=== PATIENT | female | born 1970 | race Caucasian/White ===

== ENCOUNTER 2019-10-09 07:59 | Day surgery (SDC) | payer OTHER ==
[2019-10-04 10:29] LABS: BHCG - Serum Negative (NEGATIVE); Pregs Control Background? CLEAR/WHITE (CLR/WHITE); Pregs Control Bar Appear? YES (CONTROL BAR)
[2019-10-04 10:52] LABS: Hemoglobin 11.4 g/dL (12.0-16.0); Mean Corpuscular HGB CONC 32.2 g/dL (32.0-36.0); Mean Corpuscular Hemoglobin 27.7 pg (27.0-31.0); Mean Corpuscular Volume 85.9 fL (78.0-98.0); Mean Platelet Volume 8.6 fL (7.4-10.4); Platelet Count 297 thou/uL (130-400); RBC Distribution Width 12.2 % (11.5-14.5); Red Blood Cell (RBC) Count 4.13 mill/uL (4.20-5.40); White Blood Cell (WBC) Count 6.2 thou/uL (4.8-10.8)
[2019-10-04 19:53] LABS: SARS-CoV-2 MS2 Positive; SARS-CoV-2 N Gene Negative; SARS-CoV-2 S Gene Negative; SARS-CoV-2 by NAA Not Detected (NotDetected); SARS-CoV-2 orf1ab Negative
[2019-10-09] MEDS ORDERED: Lidocaine 1% w/Epinephrine 1:100K 20 ML VIAL ONE (08:26)
[2019-10-09] MEDS ORDERED: Bupivacaine PF 0.5% 30 ML VIAL ONE (08:26)
[2019-10-09] MEDS ORDERED: Gabapentin 300 MG CAP ONE (08:27)
[2019-10-09] MEDS ORDERED: Famotidine/PF 20 mg/2ml Vial ONE (08:28)
[2019-10-09] MEDS ORDERED: CeleCOXIB 100 MG CAP ONE (08:28)
[2019-10-09] MEDS ORDERED: Fentanyl 100 MCG/2 ML VIAL ONE ×3 (09:49→13:54)
[2019-10-09] MEDS ORDERED: Midazolam HCl 2 mg/2 ml Vial ONE ×2 (09:49→10:27)
[2019-10-09] MEDS ORDERED: Ondansetron PF 4 MG/2 ML Vial ONE (09:50)
[2019-10-09] MEDS ORDERED: PROPOFOL 200 MG/20 ML VIAL ONE (09:50)
[2019-10-09] MEDS ORDERED: Glycopyrrolate 0.2 MG/ML 5 ML SYRINGE ONE (09:50)
[2019-10-09] MEDS ORDERED: Dexamethasone 20 MG/5 ML VIAL ONE (09:50)
[2019-10-09] MEDS ORDERED: EPHEDRINE 25 MG/5 ML SYRINGE ONE (09:50)
[2019-10-09] MEDS ORDERED: Lidocaine 1% PF 5 ML VIAL ONE (09:50)
[2019-10-09] MEDS ORDERED: Rocuronium Bromide 10 MG/ML (10ML VIAL) ONE (09:50)
[2019-10-09] MEDS ORDERED: Meperidine HCl/PF 25 MG/ML VIAL SLOW IVP PRN (13:02)
[2019-10-09] MEDS ORDERED: Sodium Chloride 0.9% 1,000 ML IV SCH (13:02)
[2019-10-09] MEDS ORDERED: Simethicone Chewable 80 MG TAB PO PRN (13:02)
[2019-10-09] MEDS ORDERED: Ondansetron PF 4 MG/2 ML Vial IVP PRN (13:02)
[2019-10-09] MEDS ORDERED: HYDROcodone/Acetaminophen 5/325 mg Tablet PO PRN ×2 (13:02)
[2019-10-09] MEDS ORDERED: diphenhydrAMINE 25 MG CAP PO PRN (13:02)
[2019-10-09] MEDS ORDERED: Bisacodyl 10 MG SUPP PR PRN (13:02)
[2019-10-09] MEDS ORDERED: Morphine 4 MG/ML VIAL SLOW IVP PRN (13:02)
--- NOTE | 2019-10-09 13:14 | OP ---
DATE OF PROCEDURE: 10/09/2019 PREOPERATIVE DIAGNOSIS: Umbilical hernia. POSTOPERATIVE DIAGNOSIS: Umbilical hernia. PROCEDURE PERFORMED: Umbilical hernia repair without mesh. ANESTHESIA: General. ESTIMATED BLOOD LOSS: Minimal. COMPLICATIONS: None. SPECIMENS: None. FINDINGS: Umbilical hernia. DESCRIPTION OF PROCEDURE: At the end of the [place] laparoscopic gynecologic procedure, the ports were all removed, 0 Vicryl was used to close the fascial defect at the upper midline trocar site. An incision was made above the umbilicus. Cautery was used to dissect down and amputate the umbilical stalk, exposing the umbilical defect. The edges of the defect were freshened and dissected back to the umbilical defect. The umbilical defect was closed without mesh given the clean contaminated procedure that had been performed. It was closed using interrupted PDS sutures. The umbilical stalk was tacked back down using 3-0 Vicryl. Skin was closed using running 4-0 Monocryl and Dermabond. The patient was sent to Recovery in stable condition. All instrument counts, needle counts, and lap counts were correct. Job ID: [id number]
[2019-10-09] MEDS ORDERED: Ropivacaine HCl/PF 750 ML in Premix Bag 1 BAG NERVE BLCK SCH (13:30)
[2019-10-09] MEDS ORDERED: HYDROcodone/Acetaminophen 5/325 mg Tablet ONE (15:16)
[2019-10-09] MEDS ORDERED: Ketorolac Tromethamine 30 MG/ML VIAL IVP SCH (18:00)
--- NOTE | 2019-10-09 20:06 | OP ---
DATE OF PROCEDURE: 10/09/2019 PREOPERATIVE DIAGNOSES: 1. Menorrhagia. 2. Dysmenorrhea. 3. Umbilical hernia. POSTOPERATIVE DIAGNOSES: 1. Menorrhagia. 2. Dysmenorrhea. 3. Umbilical hernia. PROCEDURES PERFORMED: 1. Robotic-assist total laparoscopic hysterectomy with bilateral salpingectomy. 2. ON-Q pump placement. 3. Intraoperative planned consult, Dr. Salguero for repair of umbilical hernia. 4. Removal of suspected ovarian fibroma. VIDEO GAMES STORYWRITER: Odette Ortiz PA-C. COMPLICATIONS: None. ESTIMATED BLOOD LOSS: Less than 50 mL. OPERATIVE FINDINGS: 1. Normal-appearing vagina and cervix. 2. Uterus sounds to 10 cm. 3. Enlarged uterus, consistent with adenomyosis. 4. Normal-appearing fallopian tubes. 5. Normal-appearing left ovary. 6. 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 7. Hemostatic vaginal cuff. PROCEDURE IN DETAIL: The patient was taken back to the OR with IV fluids running. Once she was in the OR, she was placed in dorsal supine position and general anesthesia was obtained. Once the patient was asleep, she was placed in low dorsal lithotomy position with her arms tucked at her side and the abdomen and vagina were prepped and draped in normal fashion for laparoscopic hysterectomy. Surgeons were gowned and gloved. A Ponce catheter was placed through the urethra to the bladder to drain the bladder. A Darell syringe was attached for bladder manipulation if needed during the case to the Ponce catheter tip. An operative speculum was placed into the vagina. The anterior lip of the cervix was grasped and the uterus was sounded to 10 cm. A ZipList manipulator was assembled with a 10-cm tip and a 4-cm cup and placed into the uterus and vagina in routine fashion for uterine manipulation during the case. The operative speculum and tenaculum were removed. The surgeon's gloves were changed and attention was turned to the laparoscopic portion of the case. Beginning approximately 3 cm above the supraumbilical fold, local anesthesia was injected underneath the skin. A 12-mm skin incision was made with a scalpel. A Veress needle was placed through this incision and the abdomen was insufflated without difficulty. The Veress needle was then removed. A 12-mm trocar was placed through the incision into the distended abdomen without difficulty. The laparoscope was then placed through this port with the above findings noted. The patient was then placed in Trendelenburg position. The right and left lower quadrant 8-mm robotic ports and the right upper quadrant 11-mm economic research assistant port were all placed in a similar fashion and under direct visualization without any difficulty. The laparoscopic instruments were then placed under direct visualization into the pelvis and the robot was docked to the patient's bedside. The surgeon then moved to the robotic console. Beginning at the patient's left side, the left fallopian tube was grasped and elevated away from the pelvic sidewall. The left ureter was identified and noted to be coursing away from the planned pedicle sites. The left fallopian tube was cauterized, transected and removed from the operative field. The left utero-ovarian ligament was then cauterized and transected, freeing the left ovary away to the left pelvic sidewall. The round ligament on the patient's left side was cauterized, transected and divided into anterior and posterior leaf. The anterior leaf was taken down towards the cervix and the uterine artery was skeletonized. The bladder was then backfilled, and with the bladder noted to be well away from the planned colpotomy site, the vesicocervical fascia was dissected away, allowing the bladder to fall away from the planned colpotomy site. Once the bladder was dissected away from the planned colpotomy site, the uterine artery was cauterized and transected. Attention was then turned to the contralateral side. The right ovary was noted to have a pedunculated solid growth, consistent with a fibroma. It was excised and placed into the pelvis to later be removed with the uterine specimen. The remainder of the right ovary was normal appearing. The fallopian tube on the right side was identified. The right ureter was noted to be coursing away from the planned dissection. The right fallopian tube was then cauterized, transected and removed from the abdomen to be sent for pathologic review. The utero-ovarian ligament on the patient's right side was cauterized and transected, allowing the right ovary to fall away to the pelvic sidewall. The right round ligament was cauterized, transected and dissected down into anterior and posterior leaf. The uterine artery on the patient's right side was skeletonized. The bladder flap dissection was completed. The bladder was backfilled again and noted to be well away from the planned colpotomy site. The uterine artery on the patient's right side was cauterized and transected. The colpotomy began circumferentially from the posterior position using monopolar scissors. After it was completed, the uterine specimen was retracted into the vagina. The vaginal cuff and surgical pedicles were copiously irrigated. Any small areas of bleeding at the vaginal cuff were controlled with bipolar cautery. The vagina was then reapproximated with Stratafix suture from corner to corner and closed in 2 layers. Once the vagina was closed, it was again irrigated, suctioned dry, and no areas of bleeding were noted. The pelvic sidewalls and ovaries were irrigated and dry. No areas of bleeding were noted. The pressure within the pelvis was dropped to 4 mmHg with the vaginal cuff inspected and no areas of bleeding noted. After the hysterectomy portion of procedure was completed, an ON-Q catheter tip was placed through the abdominal wall under direct visualization and the catheter was placed into the pelvis. It was primed and noted to be working well. A sterile dressing was placed at the skin to keep the catheter tip in place. The robotic instruments were removed. At this time, Dr. Salguero presented to the case to complete the procedure, which included repair of an umbilical hernia. Please see Dr. Salguero's dictation for details. After the umbilical hernia repair was complete, Dr. Salguero completed the skin closures. The patient was then extubated and transferred to recovery room in good condition. Plans include discharge later this evening if the patient meets her postoperative goals and her pain is controlled with oral medications. All counts were correct. There were no complications. Job ID: [id number]
[2019-10-14] MEDS ORDERED: Ibuprofen 800 MG TAB PO SCH (22:00)
== END 2019-10-09 18:11 | disposition home or self-care (01) ==
LOC: SDC 07:59
PROVIDERS: ATTEND Obstetrics & Gynecology
PROC: 0UT74ZZ Resection of Bilateral Fallopian Tubes, Percutaneous Endoscopic Approach (ICD-10-PCS; principal; 2019-10-09)
PROC: 0WQF4ZZ Repair Abdominal Wall, Percutaneous Endoscopic Approach (ICD-10-PCS; principal; 2019-10-09)
PROC: 0UT94ZZ Resection of Uterus, Percutaneous Endoscopic Approach (ICD-10-PCS; principal; 2019-10-09)
DX: N80.0 Endometriosis of uterus (principal); D25.9 Leiomyoma of uterus, unspecified; D27.0 Benign neoplasm of right ovary; K42.9 Umbilical hernia without obstruction or gangrene; N73.6 Female pelvic peritoneal adhesions (postinfective); D64.9 Anemia, unspecified; J30.2 Other seasonal allergic rhinitis; M19.90 Unspecified osteoarthritis, unspecified site; Z79.899 Other long term (current) drug therapy
CPT/HCPCS: 84703; 85027; 86850; 86900; 86901; 87635; 88305; 88307; J0690; J1100; J2250; J2405; J2704; J2795; J3010; S0020; S0028; U0003